=== PATIENT | male | born 1955 | race Caucasian/White ===

== ENCOUNTER → 2017-04-14 09:43 | Outpatient (REF) | payer BC, SELFPAY ==
[2017-04-14 13:38] LABS: Basophils % 0.5 % (0.1-2.0); Eosinophils # 0.2 K/mm3 (0.0-0.4); Eosinophils % 2.3 % (0.1-12.0); Hematocrit 45.2 % (42.0-52.0); Hemoglobin 14.7 g/dL (14.1-18.0); Lymphocytes # 1.9 K/mm3 (0.7-4.5); Lymphocytes % 22.5 K/mm3 (10-50); Mean Corpuscular HGB Conc 32.5 g/dL (31.8-35.4); Mean Corpuscular Hemoglobin 29.6 pg (27.0-31.2); Mean Corpuscular Volume 91.3 fl (80-94); Monocytes # 0.4 K/mm3 (0.1-1.0); Monocytes % 4.6 % (1.7-9.3); Neutrophils % 70.1 % (37.0-80.0); Platelet Count 232 K/mm3 (142-424); Red Blood Count 4.95 M/mm3 (4.60-6.20); Red Cell Distribution Width 13.2 % (11.5-17.5); White Blood Count 8.6 K/mm3 (4.8-10.8)
[2017-04-14 14:17] LABS: Alanine Aminotransferase 27 U/L (12-78); Albumin Level 4.1 gm/dL (3.4-5.0); Albumin/Globulin Ratio 1.2 (1.1-1.8); Alkaline Phosphatase 123 U/L (46-116); Anion Gap 10.6 mEq/L (5-15); Aspartate Amino Transferase 13 U/L (15-37); Bilirubin,Total 0.4 mg/dL (0.2-1.0); Blood Urea Nitrogen 18 mg/dL (7-18); Calcium 9.1 mg/dL (8.5-10.1); Carbon Dioxide 29 mmol/L (21.0-32.0); Chloride 101 mmol/L (98-107); Chol/HDL Ratio 3.9 (1-3.5); Cholesterol 221 mg/dL (140-200); Creatinine,Serum 1.06 mg/dL (0.70-1.30); Estimated Glomerular Filt Rate 71 ml/min (>60); Free T4 (Free Thyroxine) 1.06 ng/dl (0.76-1.46); GFR (African American) 86 ML/MIN (>60); Globulin 3.3 gm/dl (1.3-3.2); Glucose 105 mg/dL (74-106); HDL Cholesterol 57 mg/dL (27-67); LDL Cholesterol 120 mg/dL (0-130); Potassium 4.6 mmoL/L (3.5-5.1); Sodium 136 mmol/L (136-145); Thyroid Stimulating Hormone 1.64 uIU/ml (0.358-3.740); Total Protein,Serum 7.4 gm/dL (6.4-8.2); Triglycerides 218 mg/dL (30-200); VLDL Cholesterol 44 mg/dL (0-40)
[2017-04-14 14:51] LABS: Hemoglobin A1C 5.9 % (0.0-7.0)
[2017-04-18 12:13] LABS: Testosterone,Total 424 ng/dL (264-916); Vitamin D 25 Hydroxy 19.3 ng/mL (30.0-100.0)
== END ==
LOC: LAB 09:43
PROVIDERS: Visit Provider Nurse Practitioner Family
DX: I10 Essential (primary) hypertension (principal); R53.83 Other fatigue; Z79.899 Other long term (current) drug therapy
CPT/HCPCS: 80053; 80061; 82652; 83036; 84403; 84439; 84443; 85025

== ENCOUNTER → 2017-09-29 11:21 | Outpatient (CLI) | payer BC, SELFPAY ==
[2017-09-29 12:20] LABS: Free T4 (Free Thyroxine) 0.95 ng/dl (0.76-1.46); Thyroid Stimulating Hormone 1.09 uIU/ml (0.358-3.740)
[2017-10-01 16:49] LABS: Triiodothyronine (T3) Total 121 ng/dL (71-180)
== END ==
PROVIDERS: Visit Provider Specialist
DX: R42 Dizziness and giddiness (principal); R51 Headache
CPT/HCPCS: 36415; 84439; 84443; 84480; 93225; 93226

== ENCOUNTER → 2017-10-20 12:44 | Outpatient (CLI) | payer BC, SELFPAY ==
--- NOTE | 2017-10-20 12:46 | CI_ITS ---
Cerebrovascular Exam Indications: 780.4 Dizziness and giddiness. IMPRESSIONS 1. The bilateral vertebral arteries are patent with normal antegrade flow. 2. Study suggests 20-49% stenosis involving the right internal carotid artery. 3. Study suggests less than 20% stenosis involving the left internal carotid artery. History: Left-sided weakness and headaches. Risk factors: Current tobacco use. Hypertension. Hyperlipidemia. Carotid duplex study. Complete study and Doppler flow study including spectral analysis, color and olvera scale imaging. Height: Height: 182.9cm. Height: 72in. Weight: Weight: 74.8kg. Weight: 164.7lb. Body mass index: BMI: 22.4kg/m^2. Body surface area: BSA: 1.95m^2. Location: Vascular laboratory. Patient status: Outpatient. Tables: Arterial flow: + +--------+--------+ Location V sys V ed + +--------+--------+ Right CCA - proximal 133cm/s 28.3cm/s + +--------+--------+ Right CCA - distal 114cm/s 30.6cm/s + +--------+--------+ Right ECA 119cm/s -------- + +--------+--------+ Right ICA - proximal 128cm/s 36.1cm/s + +--------+--------+ Right ICA - mid 135cm/s 40.9cm/s + +--------+--------+ Right ICA - distal 102cm/s 33.8cm/s + +--------+--------+ Right vertebral 48.4cm/s -------- + +--------+--------+ Left CCA - proximal 161cm/s 33.2cm/s + +--------+--------+ Left CCA - distal 107cm/s 34.1cm/s + +--------+--------+ Left ECA 99.8cm/s -------- + +--------+--------+ Left ICA - proximal 79.4cm/s 25.1cm/s + +--------+--------+ Left ICA - mid 104cm/s 34.6cm/s + +--------+--------+ Left ICA - distal 105cm/s 43.2cm/s + +--------+--------+ Left vertebral 49.5cm/s -------- + +--------+--------+ Velocity ratios: + + + + + + Right, V sys Right, V ed Left, V sys Left, V ed + + + + + + Max ICA/dist CCA 1.18 1.34 0.98 1.27 + + + + + + (Report amended ) Electronically signed by: Rizwan Crowe [id number]
--- NOTE | 2017-10-20 12:46 | MR_ITS ---
MR head/brain wo con Ordering Physician: Tami Delcid MD Patient Age: 61 years: Male HISTORY: ITS.REASON: dizziness Dizzy spells on and off for one year or longer. Patient states blood pressure is up and down and that is when he notices at the most. TECHNIQUE Noncontrast Multiplanar FLAIR, T1, T2 weighted images along with axial diffusion/ADC imaging performed on 1.5 T. Siemens, MRI. COMPARISON :No relevant previous studies FINDINGS Mild chronic small vessel deep white matter ischemic gliotic changes at cerebral hemispheres. . Only a few small high signal foci are seen bilaterally within white matter of cerebral hemispheres. These are most notable peripheral to the anterior horn lateral ventricles bilaterally. On Right there there is also a tiny focus at right parietal region white matter overlying the posterior body right lateral ventricle.. No territorial infarct. No mass lesion. No extra-axial collection. Ventricles and basal cisterns appear normal. The posterior fossa appears satisfactory with cranial nerve VII and VIII identified and appear in satisfactory as a past towards the respective IACs. CP angle clear. Cranial cervical junction normal. Sella normal. Suprasellar cistern normal. Orbits unremarkable. The mastoid air cells appear clear with no significant findings. . Prominent diffuse mucosal thickening at the maxillary sinuses with air-fluid level at the right maxillary sinus suggesting acute sinusitis along with likely chronic changes here. Opacification of both maxillary sinuses with only a small amount of air centrally Also very prominent mucosal thickening at the central and left sphenoid sinus with near opacification here. Only a small amount of air remains anteriorly. Moderate mucosal thickening at ethmoid air cells and frontal sinuses are clear. There is deviation of the nasal septum with convexity to the right which narrow the nasal airway on the right. Moderate engorgement nasal turbinates. Diffusion images reveal no acute infarc or recent ischemia t. ......... IMPRESSION...... 1.. No acute findings at brain. No mass lesion. No territorial infarct. Normal anatomy 2. Chronic small vessel deep white matter ischemic gliotic changes cerebral hemispheres. A few scattered high signal foci seem bilaterally 3. Regarding dizziness: ... Would Specifically note the CP angle clear. IACs cranial nerves unremarkable Posterior fossa unremarkable. 4. Prominent Paranasal sinus disease is evident: ... Prominent diffuse mucosal thickening maxillary sinus, with air-fluid level on RIGHT reflecting acute sinusitis ... Prominent mucosal thickening sphenoid sinus. These above features nearly opacification involving sphenoid sinus as well as both maxillary sinuses ... Moderate mucosal thickening ethmoid air cells.
== END ==
PROVIDERS: PCP Nurse Practitioner Family; Visit Provider Specialist
DX: R51 Headache (principal); R42 Dizziness and giddiness; I10 Essential (primary) hypertension
CPT/HCPCS: 70551; 93880

== ENCOUNTER → 2017-11-13 10:47 | Outpatient (CLI) | payer BC, SELFPAY ==
[2017-11-13 14:11] LABS: Basophils % 0.3 % (0.1-2.0); Eosinophils # 0.1 K/mm3 (0.0-0.4); Eosinophils % 1.8 % (0.1-12.0); Hematocrit 40.3 % (42.0-52.0); Lymphocytes # 2.1 K/mm3 (0.7-4.5); Lymphocytes % 28.3 K/mm3 (10-50); Mean Corpuscular HGB Conc 32.3 g/dL (31.8-35.4); Mean Corpuscular Hemoglobin 30.7 pg (27.0-31.2); Mean Corpuscular Volume 95.1 fl (80-94); Mean Platelet Volume 9.5 fl (7.4-10.4); Monocytes # 0.5 K/mm3 (0.1-1.0); Monocytes % 6.1 % (1.7-9.3); Neutrophils # 4.6 K/mm3 (1.8-7.8); Neutrophils % 63.5 % (37.0-80.0); Platelet Count 225 K/mm3 (142-424); Red Blood Count 4.24 M/mm3 (4.60-6.20); Red Cell Distribution Width 13.5 % (11.5-17.5); White Blood Count 7.3 K/mm3 (4.8-10.8)
[2017-11-13 14:36] LABS: Alanine Aminotransferase 29 U/L (12-78); Albumin Level 3.8 gm/dL (3.4-5.0); Albumin/Globulin Ratio 1.2 (1.1-1.8); Alkaline Phosphatase 116 U/L (46-116); Anion Gap 12.6 mEq/L (5-15); Aspartate Amino Transferase 19 U/L (15-37); Bilirubin,Total 0.7 mg/dL (0.2-1.0); Blood Urea Nitrogen 14 mg/dL (7-18); Carbon Dioxide 28 mmol/L (21.0-32.0); Chloride 104 mmol/L (98-107); Chol/HDL Ratio 2.2 (1-3.5); Cholesterol 149 mg/dL (140-200); Creatinine,Serum 1.05 mg/dL (0.70-1.30); Estimated Glomerular Filt Rate 72 ml/min (>60); GFR (African American) 87 ML/MIN (>60); Globulin 3.2 gm/dl (1.3-3.2); Glucose 96 mg/dL (74-106); HDL Cholesterol 68 mg/dL (27-67); LDL Cholesterol 67 mg/dL (0-130); Potassium 4.6 mmoL/L (3.5-5.1); Sodium 140 mmol/L (136-145); T4 (Thyroxine) 6.8 ug/dl (4.7-13.3); Triglycerides 69 mg/dL (30-200); VLDL Cholesterol 14 mg/dL (0-40)
[2017-11-14 12:18] LABS: Hep A Ab, IgM Negative (Negative); Hepatitis B Core Antibody IgM Negative (Negative); Hepatitis B Surface Antigen Negative (Negative)
[2017-11-17 05:20] LABS: Hepatitis C Antibody <0.1 s/co ratio (0.0-0.9)
[2017-11-17 05:21] LABS: Vitamin D 25 Hydroxy 78.9 ng/mL (30.0-100.0)
== END ==
PROVIDERS: Visit Provider Nurse Practitioner Family
DX: R53.83 Other fatigue (principal); J01.00 Acute maxillary sinusitis, unspecified; R05 Cough; I10 Essential (primary) hypertension; E78.5 Hyperlipidemia, unspecified; I20.8 Other forms of angina pectoris; I65.23 Occlusion and stenosis of bilateral carotid arteries
CPT/HCPCS: 80053; 80061; 80074; 82652; 84436; 84443; 85025

== ENCOUNTER → 2017-11-14 08:24 | Outpatient (CLI) | payer BC, SELFPAY ==
--- NOTE | 2017-11-14 08:26 | XR_ITS ---
XR chest 2V HISTORY: ITS.REASON: cough ORDERING PHYSICIAN: Chiara Eastman PATIENT AGE: 61 years COMPARISON: 07/12/2016 FINDINGS: The cardiomediastinal silhouette and pulmonary vascularity are within normal limits. The lungs are clear without infiltrates, suspicious nodules, or pleural effusions. No acute bony abnormalities. 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
== END ==
PROVIDERS: PCP Emergency Medicine; Visit Provider Nurse Practitioner Family
DX: R05 Cough (principal)
CPT/HCPCS: 71046

== ENCOUNTER → 2017-11-25 19:43 | Outpatient (CLI) | payer BC, SELFPAY | PROVIDERS: PCP Nurse Practitioner Family; Visit Provider Specialist | DX: G47.33 Obstructive sleep apnea (adult) (pediatric) (principal); I10 Essential (primary) hypertension | CPT/HCPCS: 95810 ==

== ENCOUNTER → 2018-02-09 20:07 | Outpatient (CLI) | payer BC, SELFPAY | PROVIDERS: PCP Emergency Medicine; Visit Provider Specialist | DX: G47.33 Obstructive sleep apnea (adult) (pediatric) (principal); G47.00 Insomnia, unspecified; G47.8 Other sleep disorders | CPT/HCPCS: 95811 ==

== ENCOUNTER → 2018-02-16 13:57 | Outpatient (CLI) | payer BC, SELFPAY ==
[2018-02-16 14:12] LABS: Basophils % 0.6 % (0.1-2.0); Eosinophils # 0.2 K/mm3 (0.0-0.4); Eosinophils % 2.6 % (0.1-12.0); Hematocrit 45.2 % (42.0-52.0); Hemoglobin 14.7 g/dL (14.1-18.0); Lymphocytes # 2.1 K/mm3 (0.7-4.5); Lymphocytes % 30.4 % (10-50); Mean Corpuscular HGB Conc 32.5 g/dL (31.8-35.4); Mean Corpuscular Hemoglobin 30.8 pg (27.0-31.2); Mean Corpuscular Volume 94.6 fl (80-94); Mean Platelet Volume 9.6 fl (7.4-10.4); Monocytes # 0.4 K/mm3 (0.1-1.0); Monocytes % 5.8 % (1.7-9.3); Neutrophils # 4.3 K/mm3 (1.8-7.8); Neutrophils % 60.6 % (37.0-80.0); Platelet Count 225 K/mm3 (142-424); Red Blood Count 4.78 M/mm3 (4.60-6.20); Red Cell Distribution Width 12.9 % (11.5-17.5)
[2018-02-16 14:38] LABS: Alanine Aminotransferase 26 U/L (12-78); Albumin Level 4.2 gm/dL (3.4-5.0); Albumin/Globulin Ratio 1.3 (1.1-1.8); Alkaline Phosphatase 111 U/L (46-116); Anion Gap 12.4 mEq/L (5-15); Aspartate Amino Transferase 14 U/L (15-37); Bilirubin,Total 0.6 mg/dL (0.2-1.0); Blood Urea Nitrogen 16 mg/dL (7-18); Calcium 9.1 mg/dL (8.5-10.1); Carbon Dioxide 28 mmol/L (21.0-32.0); Chloride 99 mmol/L (98-107); Chol/HDL Ratio 2.1 (1-3.5); Cholesterol 148 mg/dL (140-200); Creatinine,Serum 0.98 mg/dL (0.70-1.30); Estimated Glomerular Filt Rate 78 ml/min (>60); GFR (African American) 94 ML/MIN (>60); Globulin 3.3 gm/dl (1.3-3.2); Glucose 106 mg/dL (74-106); HDL Cholesterol 71 mg/dL (27-67); LDL Cholesterol 59 mg/dL (0-130); Potassium 4.4 mmoL/L (3.5-5.1); Sodium 135 mmol/L (136-145); T4 (Thyroxine) 8.3 ug/dl (4.7-13.3); Thyroid Stimulating Hormone 1.09 uIU/ml (0.358-3.740); Total Protein,Serum 7.5 gm/dL (6.4-8.2); Triglycerides 92 mg/dL (30-200); VLDL Cholesterol 18 mg/dL (0-40)
[2018-02-17 11:14] LABS: Vitamin D 25 Hydroxy 62.5 ng/mL (30.0-100.0)
== END ==
PROVIDERS: Visit Provider Nurse Practitioner Family
DX: I10 Essential (primary) hypertension (principal)
CPT/HCPCS: 80053; 80061; 82652; 84436; 84443; 85025

== ENCOUNTER → 2018-10-23 07:42 | Outpatient (CLI) | payer BC, SELFPAY ==
--- NOTE | 2018-10-23 07:45 | CA_ITS ---
APPROVED REPORT Biodiesel Engine Specialist: JUAN JOSE Laterality: Bilateral Study Quality: Good Indications: STEPHEN Doppler Spectral Velocity Analysis ECA (R) 96.60/ cm/s ECA (L) 79.40/ cm/s dICA (R) 105.00/33.00 cm/s dICA (L) 70.70/25.90 cm/s Nelson (R) 99.80/39.30 cm/s Nelson (L) 72.30/28.30 cm/s pICA (R) 99.80/27.50 cm/s pICA (L) 63.60/20.40 cm/s dCCA (R) 80.10/19.60 cm/s dCCA (L) 73.90/22.00 cm/s pCCA (R) 88.80/22.00 cm/s pCCA (L) 94.30/20.40 cm/s Vert (R) 46.40/ cm/s Vert (L) 35.40/ cm/s ICA/CCA 1.31 ICA/CCA 0.98 Findings Duplex evaluation demonstrates stenosis of the right proximal internal carotid artery in the range of 20-49% with PSV <140 cm/sec, EDV <100 cm/sec, and IC/CC Ratio <4.0.Duplex evaluation demonstrates stenosis of the left proximal internal carotid artery <20% with PSV <140 cm/sec, EDV <100 cm/sec, and IC/CC Ratio <4.0.Antegrade flow seen bilateral vertebral arteries. Electronically signed by : Madhav Mejia MD 10/23/2018 16:06:13
== END ==
PROVIDERS: PCP Emergency Medicine; Visit Provider Internal Medicine
DX: I65.23 Occlusion and stenosis of bilateral carotid arteries (principal)
CPT/HCPCS: 93880

== ENCOUNTER → 2018-12-22 12:12 | Outpatient (CLI) | payer BC, SELFPAY ==
--- NOTE | 2018-12-22 12:24 | XR_ITS ---
PROCEDURE: XR CERVICAL SPINE 2V CLINICAL INDICATION: NECK PAIN COMPARISON: No exams were available for comparison FINDINGS: Normal alignment. There is degenerative disc disease from C3 the C7 with decrease in the disc space and mild endplate osteophytes. No fracture or dislocation. No lytic or blastic change. There is some carotid artery calcification on the left. IMPRESSION: Cervical spondylosis with degenerative disc disease Dictated by: Madhav Mejia MD 12/22/2018 17:26 Electronically signed by Madhav Mejia MD in [place] 12/22/2018 17:26
== END ==
PROVIDERS: PCP Emergency Medicine; Visit Provider Nurse Practitioner Psychiatric/Mental Health
DX: M54.2 Cervicalgia (principal)
CPT/HCPCS: 72040

== ENCOUNTER 2019-04-27 08:30 | Outpatient (RCR) | payer BC, SELFPAY | END 2019-04-27 08:35 | disposition home or self-care (01) | LOC: PT 08:30 | PROVIDERS: Visit Provider Nurse Practitioner Psychiatric/Mental Health | DX: M54.2 Cervicalgia (principal); M79.602 Pain in left arm | CPT/HCPCS: 20560; 97010; 97012; 97014; 97035; 97110; 97140; 97163; 97164; G0283 ==

== ENCOUNTER → 2019-06-18 12:39 | Outpatient (CLI) | payer BC, SELFPAY ==
--- NOTE | 2019-06-18 12:43 | MR_ITS ---
PROCEDURE: MR CERVICAL SPINE WO CON CLINICAL INDICATION: CERVICAL RADICULOPATHY Neck pain, left arm numbness and tingling COMPARISON: XR CERVICAL SPINE 2V from 12/22/2018 TECHNIQUE: Standard multiplanar multiecho sequences are performed without contrast. 3-D MIP and myelographic images are also rendered and reviewed FINDINGS: There is normal alignment. The cranial cervical junction has an unremarkable appearance. Mild hypertrophic changes of the atlantoaxial joint at the odontoid without impingement. C2-C3: Unremarkable. C3-C4: Degenerative disc disease with a small broad-based left paracentral disc protrusion causing mild left lateral recess and foraminal narrowing with mild impingement upon the left aspect of the cord anteriorly causing minimal cord flattening C4-C5: Degenerate disc disease with bulging disc and a broad-based small central and right paracentral disc protrusion/disc osteophyte complex. This is causing canal stenosis along with moderate to severe right-sided lateral recess and foraminal narrowing with impingement upon and mild flattening of the anterior right aspect of the cord. C5-C6: Degenerative disc disease with a broad based central disc protrusion which is slightly eccentric to the right and is causing canal stenosis at 8 mm and is also causing some mild impingement upon the anterior aspect of the cord slightly toward the right with some cord flattening. C6-C7: Degenerate disc disease with bulging disc/broad-based disc protrusion with resultant canal stenosis of 8 mm causing mild impingement upon the anterior aspect of the cord with minimal cord flattening. There is bilateral lateral recess and foraminal narrowing. In addition, there is a area of hypointensity in the left neural foramen at this region consistent with a disc osteophyte complex causing severe left-sided foraminal narrowing with impingement upon the exiting nerve root. C7-T1: Unremarkable. IMPRESSION: Abnormal MRI of the cervical spine with multilevel cervical spondylosis with degenerative disc disease, bulging disc, disc protrusions, disc osteophyte complexes and facet hypertrophic change with resultant canal stenosis, lateral recess, and foraminal narrowing as well as impingement of the cervical cord at multiple levels. Please see above for detailed description at each level. Dictated by: Madhav Mejia MD 06/19/2019 09:33 Electronically signed by Madhav Mejia MD in [place] 06/19/2019 09:33
== END ==
PROVIDERS: PCP Emergency Medicine; Visit Provider Family Medicine
DX: M54.12 Radiculopathy, cervical region (principal)
CPT/HCPCS: 72141; 76376

== ENCOUNTER → 2019-12-20 13:26 | Outpatient (CLI) | payer BC, SELFPAY ==
--- NOTE | 2019-12-20 13:27 | CA_ITS ---
APPROVED REPORT EXAM: Comprehensive 2D, Doppler, and color-flow Echocardiogram Repairer Veneer Sheet: Sue Newsome CRT Ht: 6 ft 0 in Wt: 140lbs BSA: 1.83 BP: 110/60 mmHg Indications: cad,SOA 2D Dimensions LVOT 2.11 cm (M/F) 1.5-2.5 M-Mode Dimensions RVDd 2.45 cm (0.9-2.6) LA Diam 3.63 cm (1.9-4.0) LVDd 5.67 cm (3.5-5.7) Ao Diam 3.47 cm (2.0-3.7) LVDs 3.14 cm (3.5-5.7) IVSd 0.64 cm (0.6-1.1) PWd 0.72 cm (0.6-1.1) EF (Teich) 75.30% FS 44.60% EDV (Teich) 158.10 mL ESV (Teich) 39.10 mL LV Diastology E Decel Time 283.00 (160-240 msec) E/A Ratio 1.4 MED E' 11.80 (< 7 cm/sec) E'/MED E' Ratio 8.48 (>14) LAT E' 14.20 (<10 cm/sec) E/LAT E' Ratio 7.05 (>14) Mitral Valve MV E Max Rogers. 100.00 (40-130 cm/s) MV A Velocity 74.00 (40-130 cm/s) E/A Ratio 1.36 MV Decel. Time 283.00 (160-240 ms) MV PHT 83.00 ms Tricuspid Valve TR P. Velocity 239.00 cm/s RAP Estimate 10.00 mmHg RVSP 32.90 mmHg Left Ventricle Left atrium is mildly enlarged, left ventricle is normal size, mild concentric left ventricular hypertrophy, visually estimated ejection fraction 55% with no regional wall motion abnormality, diastolic parameters are inconclusive. Right Ventricle Right atrium and right ventricle are normal size and contractility. Aortic Valve Aortic valve is thickened and calcified leaflet chordae display good mobility, there is no aortic stenosis or aortic insufficiency. Mitral Valve Mitral valve leaflets are minimally thickened, there is mild mitral regurgitation. Tricuspid Valve Tricuspid valve grossly normal, there is mild tricuspid regurgitation. Tricuspid regurgitation jet velocity is inadequate for calculation of the right ventricular systolic pressure. Pulmonic Valve Pulmonic valve is poorly visualized. Great Vessels Aortic root is normal size. Pericardium No significant pericardial effusion noted. Conclusion 1. Mildly low left atrium, normal left ventricular size, mild concentric left ventricular hypertrophy, visually estimated ejection fraction 55% with no regional wall motion abnormality, diastolic parameters are inconclusive for 2. Thickened and calcified aortic valve without Doppler evidence of aortic stenosis or aortic insufficiency. 3. Mild mitral and tricuspid regurgitation. 4. No significant pericardial effusion noted. Electronically signed by : Omid Muro, 12/20/2019 20:39:59
--- NOTE | 2019-12-20 13:27 | CA_ITS ---
APPROVED REPORT Flare Maker: JUAN JOSE Laterality: Bilateral Study Quality: Good Indications: dyspnea,STEPHEN Doppler Spectral Velocity Analysis dICA (R) 70.30/20.10 cm/s dICA (L) 85.80/30.10 cm/s Nelson (R) 93.10/21.90 cm/s Nelson (L) 84.00/27.40 cm/s pICA (R) 95.20/25.20 cm/s pICA (L) 92.80/28.30 cm/s dCCA (R) 104.00/16.70 cm/s dCCA (L) 123.10/30.80 cm/s pCCA (R) 112.90/21.90 cm/s pCCA (L) 115.50/19.40 cm/s Vert (R) 52.00/14.60 cm/s Vert (L) 53.70/11.40 cm/s ICA/CCA 0.90 ICA/CCA 0.80 Findings Duplex evaluation demonstrates stenosis of the right proximal internal carotid artery in the range of 20-49% with PSV <140 cm/sec, EDV <100 cm/sec, and IC/CC Ratio <4.0.Duplex evaluation demonstrates stenosis of the left proximal internal carotid artery <20% with PSV <140 cm/sec, EDV <100 cm/sec, and IC/CC Ratio <4.0.Antegrade flow seen bilateral vertebral arteries.No significant change fro exam of 10/23/18 Electronically signed by : Madhav Mejia MD 12/21/2019 09:00:48
== END ==
PROVIDERS: PCP Family Medicine; Visit Provider Urology
DX: R06.02 Shortness of breath (principal); I77.9 Disorder of arteries and arterioles, unspecified; I10 Essential (primary) hypertension; I65.23 Occlusion and stenosis of bilateral carotid arteries
CPT/HCPCS: 93306; 93880

== ENCOUNTER → 2020-08-02 07:48 | Outpatient (CLI) | payer BC, SELFPAY ==
--- NOTE | 2020-08-02 07:48 | CA_ITS ---
APPROVED REPORT Concreter: RODRICK Laterality: Bilateral Indications: STEPHEN Risk Factors Hypertension: Smoking occasional dizziness Doppler Spectral Velocity Analysis ECA (R) 111.50/15.00 cm/s ECA (L) 77.50/11.80 cm/s dICA (R) 90.50/32.20 cm/s dICA (L) 96.30/33.40 cm/s Nelson (R) 118.20/39.70 cm/s Nelson (L) 97.00/37.90 cm/s pICA (R) 106.20/32.90 cm/s pICA (L) 72.20/24.10 cm/s dCCA (R) 85.30/19.50 cm/s dCCA (L) 80.30/23.80 cm/s pCCA (R) 107.00/17.20 cm/s pCCA (L) 109.20/22.50 cm/s Vert (R) 44.90/14.40 cm/s Vert (L) 41.70/17.30 cm/s ICA/CCA 1.39 ICA/CCA 1.21 Findings Duplex evaluation demonstrates stenosis of the right proximal internal carotid artery in the range of 20-49%, unchanged from study done 12/20/19. Duplex evaluation demonstrates stenosis of the left proximal internal carotid artery <20%, unchanged from study done 12/20/19. Conclusion Duplex evaluation demonstrates stenosis of the right proximal internal carotid artery in the range of 20-49%, unchanged from study done 12/20/19. Duplex evaluation demonstrates stenosis of the left proximal internal carotid artery <20%, unchanged from study done 12/20/19. Electronically signed by : Madhav Mejia MD 08/02/2020 16:46:16
== END ==
PROVIDERS: PCP Family Medicine; Visit Provider Urology
DX: I65.23 Occlusion and stenosis of bilateral carotid arteries (principal)
CPT/HCPCS: 93880

== ENCOUNTER 2020-10-21 14:31 | Emergency (ER) | payer BC, SELFPAY ==
[2020-10-21 14:38] VITALS: BP 152/97; PULSE 74; RESP 18; O2SAT 98
[2020-10-21 15:10] VITALS: BP 152/97; PULSE 74; RESP 18; TEMP 36.8; O2SAT 98
[2020-10-21 15:51] VITALS: BP 152/97; PULSE 74; RESP 18; TEMP 36.8; O2SAT 98
--- NOTE | 2020-10-21 16:08 | HMH.EDUTC ---
[facility] [place] Disposition Clinical Impression: Laceration Disposition: Home, Self-Care Condition on Discharge: Good Instructions: How to Care for a Laceration After Repair, Laceration Repair, DI for Laceration Repair -- Simple, Amoxicillin and Clavulanic Acid Additional Instructions: Suture instructions: You have required stitches today. Please read the following instructions so you know how to care for them: 1. Keep wound area dry for the first 24 hours. 2 May clean gently with mild soap and water, after 48 hours to prevent crusting over suture knots. 3. You may shower if your provider gives permission but do not take a bath until the skin is healed.. 4. Never leave a wet dressing or Band-Aid on your stitches as this allows bacteria to reach the area and may cause infection. Band-aids can cause the wound to sweat and not recommended to wear for long periods of time Watch for signs of infection: Increasing redness, tenderness or warmth around the suture site Unusual swelling around the site Appearance of pus around each suture or any red streaks Fever If you develop any of the above signs or symptoms of infection, Follow up with Family Physician immediately 5. Suture removal in _7-10___days 6. Return to [facility] or follow up with family doctor for removal. This can be done by any medical provider during regular hours on Friday through Friday, by appointment. Prescriptions: Amoxicillin/Potassium Clav [Augmentin 875-125 Tablet] 1 tab PO Q12H 7 Days #14 tab Transmission Status: Received by [id number] Referrals: Brice Ga [Primary Care Provider] - As needed Time of Disposition: 16:43 Medical Decision Making - Rubin Inquiry Pt receiving controlled substance: No Rubin was queried for this patient: No Vital Signs: 10/21/20 14:38 10/21/20 15:10 10/21/20 15:51 Temperature 98.2 F 98.2 F Temperature Source Oral Pulse Rate 74 Pulse Rate [Left Radial] 74 74 Respiratory Rate 18 18 18 Blood Pressure 152/97 H Blood Pressure [Right Arm] 152/97 H 152/97 H Blood Pressure Mean [Right Arm] 115 115 Blood Pressure Source [Right Arm] Automatic Cuff Automatic Cuff Blood Pressure Position [Right Arm] Sitting Sitting 02 Sat by Pulse Oximetry 98 98 Oxygen Delivery Method Room Air Room Air Orders (Tests/Meds): ED MEDICATIONS Discontinued Medications Generic Name Dose Route Start Last Admin Trade Name Lucy PRN Reason Stop Dose Admin Tetanus/Reduced Diphtheria/Acell Pertussis 0.5 ml 10/21/20 15:34 10/21/20 15:43 Tet/Diphth/Pert-Adult 0.5ml Syringe IM 10/21/20 15:35 0.5 ml .ONCE ONE Administration [facility] [place] HPI - General Stated complaint: [id number] [id number] laceration left forearm Time Seen by Provider: 10/21/20 16:08 Mode of Arrival: Ambulatory Source of Information: Patient Limitations: No Limitations Description of Symptoms (Recalled from Triage Doc. by RN): LACERATION TO LEFT FOREARM FROM POCKET KNIFE YESTERDAY HEENT Symptoms (Recalled from RN notes): No Resp Symptoms (Recalled from RN notes): No Skin Symptoms (Recalled from RN notes): Yes MS Symptoms (Recalled from RN notes): No Functional Status (Recalled from RN notes): WNL - History of Present Illness Provider Complaint: Patient states that he was cutting something with pocket knife yesterday evening when it slipped and cut him on his left forearm State that he put some butterfly bandages on it and thought it would be ok but lac has continued to bleed and reopens everytime he moves his arm States that this evening it was still bleeding so he came in to get it checked - Related Data Home Medications Medication Instructions Recorded Confirmed buprenorphine 8 mg-naloxone 2 mg 1 tab SUBLINGUAL DAILY tab 04/14/17 07/26/20 sublingual tablet Previous Rx's Medication Instructions Recorded lisinopril 10 1 tab PO DAILY #90 each 11/01/19 mg-hydrochlorothiazide 12.5 mg tablet isosorbide mononitrate 60 mg 60 mg PO DAILY #30 ta
== END 2020-10-21 16:50 | disposition home or self-care (01) ==
LOC: ER 14:39 → UTC 14:39
PROVIDERS: Emergency Provider Nurse Practitioner; PCP Family Medicine
DX: S51.812A Laceration without foreign body of left forearm, initial encounter (principal); W26.0XXA Contact with knife, initial encounter; Y92.89 Other specified places as the place of occurrence of the external cause; I10 Essential (primary) hypertension; E78.5 Hyperlipidemia, unspecified; J44.9 Chronic obstructive pulmonary disease, unspecified; F17.210 Nicotine dependence, cigarettes, uncomplicated; Z23 Encounter for immunization
CPT/HCPCS: 12001; 90471; 90715; 99202; G0463

== ENCOUNTER → 2021-02-19 15:03 | Outpatient (CLI) | payer BC, SELFPAY ==
--- NOTE | 2021-02-19 15:06 | CT_ITS ---
PROCEDURE: CT LUNG SCREENING CLINICAL INDICATION: H/O NICOTINE DEPENDENCE COMPARISON: CR CXR CHEST(2 VIEWS-NOT PORTABLE) from 07/12/2016 TECHNIQUE: The exam was performed on a GE Light Speed [address] scanner using 2.90 mGy CTDI. A low dose helical CT CHEST was performed on a multi-detector scanner. All CT scans at the facility use one or more dose reduction, viz: automated exposure control, ma/kV adjustment per patient size (including targeted exams where dose is matched to indication, i.e. head), or iterative reconstruction technique. The LDCT was performed in a facility that meets the criteria for the screening program. Data regarding this exam was submitted to ACR which is an approved registry. The order for this exam indicates that it came as a result of a lung cancer screening counseling shard decision-making visit that included all the elements required of such a visit including smoking cessation. The radiologist interpreting this exam meets the CMS criteria for the LDCT lung cancer screening program. The exam is reported using the Lung-RADS classification scale and reported to the ACR registry. NOTE: This study was performed for the specific purposes of lung cancer screening and is not an alternative to diagnostic chest CT. RADIATION DOSE: CTDI vol(CT dose Index-volume) = 2.90mG DLP (Dose Length Product) = 123.50 mGcm FINDINGS: COPD changes with paraseptal emphysematous change. There are scattered areas of scarring. There is a 12 x 12 mm noncalcified nodule in the right apex adjacent to an area of scarring. This is suspicious for malignancy but could be due to an area of scarring. PET CT suggested for further evaluation. Subpleural thickening noted in the right upper lobe laterally may be due to an area of scarring. There is evidence of old granulomatous disease. There are few scattered subpleural opacities which are nonspecific OTHER FINDINGS: Prominent left cervical rib. 2.7 cm exophytic density projects off the left kidney laterally may represent a cyst. IMPRESSION: Lung-RADS Category 4A Suspicious 12 mm suspicious nodule in the right upper lobe. Follow-up: Suggest PET-CT for further evaluation of the right upper lobe nodule. Dictated by: Madhav Mejia MD 03/02/2021 10:09 Madhav Mejia MD in [place] 03/02/2021 10:09
== END ==
PROVIDERS: PCP Family Medicine; Visit Provider Family Medicine
DX: Z87.891 Personal history of nicotine dependence (principal); Z12.2 Encounter for screening for malignant neoplasm of respiratory organs
CPT/HCPCS: 71271

== ENCOUNTER 2021-05-08 11:00 | Outpatient (RCR) | payer BC, SELFPAY | END 2021-05-08 11:05 | disposition home or self-care (01) | LOC: PT 11:00 | PROVIDERS: PCP Family Medicine; Visit Provider Family Medicine | DX: M54.2 Cervicalgia (principal); G62.9 Polyneuropathy, unspecified; M79.602 Pain in left arm | CPT/HCPCS: 97010; 97012; 97014; 97110; 97140; 97163; 97164; G0283 ==

== ENCOUNTER → 2021-08-09 07:19 | Outpatient (CLI) | payer BC, SELFPAY ==
[2021-08-09 08:05] LABS: Basophils # 0.1 K/mm3 (0-0.2); Eosinophils # 0.1 K/mm3 (0.0-0.4); Eosinophils % 1.5 % (0.1-12.0); Hematocrit 40.8 % (42.0-52.0); Hemoglobin 13.6 g/dL (14.1-18.0); Lymphocytes % 27.2 % (10-50); Mean Corpuscular HGB Conc 33.2 g/dL (31.8-35.4); Mean Corpuscular Hemoglobin 32.1 pg (27.0-31.2); Mean Corpuscular Volume 96.6 fl (80-94); Monocytes # 0.4 K/mm3 (0.1-1.0); Monocytes % 5.7 % (1.7-9.3); Neutrophils # 4.7 K/mm3 (1.8-7.8); Neutrophils % 64.6 % (37.0-80.0); Platelet Count 303 K/mm3 (142-424); Red Blood Count 4.22 M/mm3 (4.60-6.20); Red Cell Distribution Width 13.9 % (11.5-17.5); White Blood Count 7.3 K/mm3 (4.8-10.8)
[2021-08-09 09:28] LABS: Hemoglobin A1C 5.9 % (4.0-6.0)
[2021-08-09 10:13] LABS: Alanine Aminotransferase 69 U/L (12-78); Albumin/Globulin Ratio 1.5 (1.1-1.8); Alkaline Phosphatase 131 U/L (38-126); Anion Gap 7.5 mEq/L (5-15); Aspartate Amino Transferase 67 U/L (17-59); Bilirubin,Total 0.3 mg/dl (0.2-1.3); Blood Urea Nitrogen 21 mg/dl (9-20); Calcium 9.6 mg/dl (8.4-10.2); Carbon Dioxide 30 mmol/L (22.0-30.0); Chloride 101 mmol/L (98-107); Chol/HDL Ratio 2.1 (1-3.5); Cholesterol 191 mg/dl (140-200); Estimated Glomerular Filt Rate 97 ml/min (>60); GFR (African American) 118 ML/MIN (>60); Globulin 2.6 g/dL (1.3-3.2); Glucose 113 mg/dl (74-100); HDL Cholesterol 91 mg/dl (40-60); Magnesium 1.8 mg/dl (1.6-2.3); Potassium 4.5 mmoL/L (3.5-5.1); Sodium 134 mmol/L (136-145); Total Protein,Serum 6.6 g/dl (6.3-8.2); Triglycerides 119 mg/dl (30-150); VLDL Cholesterol 24 mg/dL (0-40)
[2021-08-09 10:25] LABS: Direct LDL Cholesterol 76.27 mg/dL (100-129)
[2021-08-09 10:44] LABS: Prostate Specific Ag Screen < 0.1 ng/ml (0.0-4.0); Thyroid Stimulating Hormone 1.77 uIU/mL (0.465-4.68)
[2021-08-09 11:20] LABS: Vitamin B12 325 pg/mL (239-931)
[2021-08-09 11:22] LABS: Folate 5.02 ng/mL
== END ==
PROVIDERS: PCP Family Medicine; Visit Provider Family Medicine
DX: I25.10 Atherosclerotic heart disease of native coronary artery without angina pectoris (principal); I10 Essential (primary) hypertension; R73.9 Hyperglycemia, unspecified; Z12.5 Encounter for screening for malignant neoplasm of prostate
CPT/HCPCS: 36415; 80053; 80061; 82607; 82746; 83036; 83735; 84443; 85025; G0103

== ENCOUNTER → 2021-11-08 12:48 | Outpatient (CLI) | payer MEDICARE, BC, SELFPAY ==
--- NOTE | 2021-11-08 12:51 | CA_ITS ---
APPROVED REPORT EXAM: Comprehensive 2D, Doppler, and color-flow Echocardiogram Wind Farm Operations Manager: PADMINI Vasques, RVS Ht: 6 ft 0 in Wt: 130lbs BSA: 1.77 BP: 000/00 mmHg Indications: CP, COPD, Smoker, HTN, HLD, Low BMI Echo Enhancing Agent Comments: Extremely low acoustic windows throughout exam due to body habitus and lung impedence. 2D Dimensions IVSd 0.91 cm LVEF (Visual) 77.80 % PWd 0.73 cm LVDd 3.97 cm LVDs 2.15 cm Aortic Root 2.84 cm Left Atrium 2.50 cm LVOT 2.04 cm (M/F) 1.5-2.5 M-Mode Dimensions TAPSE 1.31 (<1.7) LV Diastology E Decel Time 263.00 (160-240 msec) E/A Ratio 0.95 MED E' 10.50 (< 7 cm/sec) MED A' 8.70 cm/s E'/MED E' Ratio 6.46 (>14) LAT E' 6.50 (<10 cm/sec) LAT A' 6.50 cm/s E/LAT E' Ratio 10.43 (>14) Aortic Valve LVOT Max 92.00 (70-110 cm/s) LVOT VTI 14.60 cm AoV Peak Rogers. 189.00 (50-130 cm/s) AO Peak GR. 14.30 mmHg AO Mean GR. 7.10 (<5 mmHg) AO VTI 31.52 (18-25 cm) ALEX (VTI) 1.51 (2.5-4.5 cm2) Mitral Valve MV A Velocity 71.00 (40-130 cm/s) E/A Ratio 0.95 MV Decel. Time 263.00 (160-240 ms) MV PHT 77.00 ms Pulmonary Valve PV Peak Velocity 82.00 (50-150 cm/s) Tricuspid Valve TR P. Velocity 258.00 cm/s RAP Estimate 10.00 mmHg RVSP 36.60 mmHg Left Ventricle Left atrium is mildly enlarged the left ventricle is normal size mild concentric left ventricular hypertrophy, estimated ejection fraction 55% with no regional wall motion abnormality, grade 1 diastolic dysfunction seen without tissue Doppler evidence of raise left atrial pressure. Right Ventricle Right atrium and right ventricle are mildly enlarged with normal contractility. Aortic Valve Aortic valve is minimally thickened and fibrosed there is no aortic stenosis or aortic insufficiency. Mitral Valve Mitral valve is grossly normal, there is no mitral stenosis, there is mild mitral regurgitation. Tricuspid Valve Tricuspid valve grossly normal, there is mild tricuspid regurgitation, calculated right ventricular systolic pressure is 36 mmHg. Pulmonic Valve Pulmonic valve is poorly visualized. Great Vessels Aortic root is normal size. Inferior vena cava is normal size with normal inspiratory collapse. Pericardium No significant pericardial effusion noted. Conclusion 1. Mild biatrial enlargement, normal left ventricular size, mild concentric left ventricular hypertrophy, estimated ejection fraction 55% with no regional wall motion abnormality, grade 1 diastolic dysfunction seen without tissue Doppler evidence of raise left atrial pressure. 2. Mildly enlarged right ventricle with normal contractility. 3. Mild mitral and tricuspid regurgitation, calculated right ventricular systolic pressure 36 mmHg. 4. Inferior vena cava is normal size with normal inspiratory collapse. Electronically signed by : Omid Muro MD 11/09/2021 11:01:15
--- NOTE | 2021-11-08 12:51 | CA_ITS ---
FINAL REPORT TECHNIQUE: Color Doppler, duplex Doppler and olvera scale sonography of the bilateral neck arterial vasculature was performed. Velocities were measured in the carotid arteries. Stenosis evaluation based on the validated velocity criteria. CLINICAL HISTORY: raymon COMPARISON: August 01, 2020 FINDINGS: The peak systolic velocity of the right common carotid artery is 132 cm/s. The peak systolic velocity of the right internal carotid artery is 114 cm/s and end diastolic velocity 32 cm/s. The ICA/CCA ratio is 0.9. A mild amount of plaque is present. The right external carotid artery is patent. The right vertebral artery is patent with antegrade flow. The peak systolic velocity of the left common carotid artery is 98 cm/s. The peak systolic velocity of the left internal carotid artery is 70 cm/s and end diastolic velocity 26 cm/s. The ICA/CCA ratio is 0.7. A mild amount of plaque is present. The left external carotid artery is patent.The left vertebral artery is patent with antegrade flow. IMPRESSION: Less than 50% bilateral carotid stenosis. Similar to the prior exam. Bilateral patent vertebral arteries with antegrade flow. If indicated, CTA or MRA could further evaluate. Reviewed, Interpreted and Dictated by Dylan Gomez III, MD Transcribed by Keiry Geiger Authenticated and [facility]
== END ==
PROVIDERS: PCP Family Medicine; Visit Provider Nurse Practitioner Family
DX: R06.02 Shortness of breath (principal); I10 Essential (primary) hypertension; I65.23 Occlusion and stenosis of bilateral carotid arteries; E78.49 Other hyperlipidemia
CPT/HCPCS: 93306; 93880